=== PATIENT | female | born 1950 | race Caucasian/White ===

== ENCOUNTER 2016-09-14 17:20 | Emergency (ER) | payer OTHER ==
[~2016-09-14] VITALS: Ht 167.6 cm; Wt 76.5 kg
[~2016-09-14 17:20] MED LIST: ALBU1AER9 INH; BENZ100C84 PO; BUSP30TA2 PO; CHOL100010 PO; CITA40TA4 PO; FLUT220A INH; GLIM1TAB2 PO; LEVO75TA5 PO; NAPR-1169 PO; PRAV20TA PO; PRLSR20 PO; VSC/5 PO
[2016-09-14 17:25] VITALS: TEMP 36.6; Ht 167.6 cm; Wt 76.5 kg
[2016-09-14] MEDS ORDERED: FLUT0.15 NAE (17:49)
--- NOTE | 2016-09-14 18:40 | DIAGNOSTIC IMAGING REPORT ---
RIGHT LOWER EXTREMITY VENOUS DOPPLER CLINICAL HISTORY: Right leg swelling. COMPARISON STUDY: No previous studies for comparison. TECHNIQUE: Sonography of the deep venous system of the right lower extremity was performed. Compression and augmentation were evaluated. FINDINGS: The right common femoral, superficial femoral and popliteal veins were compressible. Augmentation was normal. Flow was shown within the deep calf vessels. IMPRESSION: No evidence of deep venous thrombus within the right lower extremity. Electronically signed by: Matthew Lancaster M.D. 09/14/2016 6:38 PM Dictated Date/Time: 09/14/2016 6:38 PM
[2016-09-14 19:21] VITALS: BP 149/80; PULSE 84; O2SAT 95
--- NOTE | 2016-09-14 19:28 | EMERGENCY ROOM VISIT NOTE ---
History First contact with patient: 17:32 Chief Complaint: LEG PAIN,LEG INJURY Stated Complaint: RIGHT LEF SWOLLEN/CALF History of Present Illness The patient is a 66 year old female who presents to the Emergency Room with complaints of persistent swelling of the right leg after tripping and falling on a concrete step the day after Tamara. The patient reports that she now has a little bit of swelling of the front of the knee, and swelling of the calf with mild leg cramps. She denies any knee pain with ambulation. She denies any prior history of blood clots, but thought she should be checked to make sure that she does not have an acute DVT. Tetanus immunization is up-to-date. Review of Systems 10 system review was performed and was negative except for pertinent positives and negatives as indicated in history of present illness Past Medical/Surgical History Medical Problems: (1) Chronic Kidney Disease, Stage 3 (Moderate) (2) Chronic Sphenoidal Sinusitis (3) Hyperlipidemia, Unspecified (4) Hypothyroidism, Unspecified (5) Personal History Of Malignant Neoplasm Of Breast (6) Type 2 Diabetes Mellitus Without Complications Surgical Problems: (1) History of hysterectomy Family History FH: diabetes mellitus FH: heart disease FH: hypertension Social History Smoking Status: Never Smoker Alcohol Use: occasionally Marital Status: Occupation Status: retired Current/Historical Medications Scheduled Buspirone Hcl (Buspirone Hcl), 15 TAB PO BID Cholecalciferol (Vitamin D), 1,000 INTER.UNIT PO QAM Citalopram (Citalopram Hydrobromide), 1 TAB PO QAM Fluticasone Propionate (Nasal) (Flonase Allergy Relief), 2 SPRAY FREDERICK DAILY Glimepiride (Glimepiride), 2 MG PO DAILY Levothyroxine Sodium (Levothyroxine Sodium), 1 TAB PO QAM Omeprazole (Prilosec), 20 MG PO QAM Pravastatin (Pravachol ), 40 MG PO HS Solifenacin (Vesicare), 5 MG PO HS Scheduled PRN Albuterol (Proair Hfa), 2 PUFFS INH Q4 PRN for SOB/Wheezing Benzonatate (Tessalon Perles), 100 MG PO UD PRN for Cough Naproxen (Naprosyn), 500 MG PO BID PRN for Pain Allergies Coded Allergies: No Known Allergies (Unverified , 11/18/15) Physical Exam Vital Signs Date Time Temp Pulse Resp B/P Pulse Ox O2 Delivery O2 Flow Rate FiO2 09/14/16 19:21 84 16 149/80 95 09/14/16 17:25 36.6 102 20 148/75 92 Room Air Pain Rating (0-10): 4.0 Physical Exam CONSTITUTIONAL: Healthy and well nourished. Alert and oriented X 3 with positive affect. Patient does not appear in any acute distress. HEENT: Normocephalic, atraumatic. Pupils equal, round and reactive. NECK: Full active range of motion without discomfort. MUSCULOSKELETAL: Examination of the right lower extremity does not show any obvious edema when compared to the contralateral leg. The patient has a small abrasion over the patellar tendon region. She also has bogginess over the tibial tubercle. She has full range of motion of the knee without discomfort. Ligaments exam is normal. No joint effusion. No antalgic gait. She has no significant tenderness to palpation of the gastroc muscle or Achilles tendon. Distal pulses are intact. INTEGUMENTARY: No rash or other significant dermatologic conditions noted. NEUROLOGIC: Right foot and toes are sensory intact. Medical Decision & Procedures ER Provider Diagnostic Interpretation: Venous ultrasound of the right lower extremity is negative for deep vein thrombosis. Radiologist report is as follows: RIGHT LOWER EXTREMITY VENOUS DOPPLER CLINICAL HISTORY: Right leg swelling. COMPARISON STUDY: No previous studies for comparison. TECHNIQUE: Sonography of the deep venous system of the right lower extremity was performed. Compression and augmentation were evaluated. FINDINGS: The right common femoral, superficial femoral and popliteal veins were compressible. Augmentation was normal. Flow was shown within the deep calf vessels. IMPRESSION: No evidence of deep venous thrombus within the right lower extremity. ED Course Patient history and physical exam were performed. Nurse's notes were reviewed. The patient refused an x-ray, stating that she can walk without discomfort, therefore does not feel that she has a fracture. She did request an ultrasound of the leg. Venous Doppler did not show any evidence for deep vein thrombosis. The patient was encouraged to apply an Tono wrap to the leg, and intermittently apply ice for swelling. She was encouraged to follow-up with her family doctor as needed for any persistent symptoms or swelling. The patient was happy with plan of care, and rated her discomfort a 2 out of 10 at the conclusion of my exam. Impression Primary Impression: Contusion of right leg Departure Information Dispostion Home / Self-Care Forms HOME CARE DOCUMENTATION FORM, IMPORTANT VISIT INFORMATION Patient Instructions A Signature Page, My [facility] Additional Instructions Intermittently apply ice to leg for swelling. Suggest wrapping an Tono wrap around the leg for additional support and to help control any residual bleeding of the deep tissue. Tylenol as needed for pain. Follow-up with your family doctor as needed if symptoms are not improving within the next 3-5 days.
[2017-01-08] MEDS ORDERED: PRVC/40 PO (13:08)
[2017-01-08] MEDS ORDERED: GLIM2TAB2 PO (13:08)
[2017-01-08] MEDS ORDERED: ASPCH81X PO (13:08)
[2017-02-20] MEDS ORDERED: PRED1SUS3 OPL (11:00)
== END 2016-09-14 19:22 | disposition home or self-care (01) ==
LOC: C.EDB 17:21 → C.EDD 19:22
DX: S80.11XA Contusion of right lower leg, initial encounter (principal); M79.89 Other specified soft tissue disorders; N18.3 Chronic kidney disease, stage 3 (moderate); E03.9 Hypothyroidism, unspecified; E78.5 Hyperlipidemia, unspecified; E11.9 Type 2 diabetes mellitus without complications; Z79.899 Other long term (current) drug therapy; Z85.3 Personal history of malignant neoplasm of breast; W19.XXXA Unspecified fall, initial encounter

== ENCOUNTER → 2017-01-29 | Day surgery (SDC) | payer OTHER ==
[2017-01-08 13:09] VITALS: Ht 167.6 cm; Wt 71.8 kg
[~2017-01-29] VITALS: Ht 167.6 cm; Wt 71.8 kg
[~2017-01-29] MED LIST changes: +500ML BSS 0.3ML EPI 1:1000PF IRRIG ONE; +ACETAMINOPHEN 325 MG TAB PO PRN; +AMVISC PLUS 0.8ML SYRINGE INT OCU ONE; +ASPCH81X PO; +ATROPINE SULFATE 0.1 MG/ML 5ML SYR IV PRN; -BENZ100C84 PO; +BSS FLUSH ONE; +EpHEDrine SULFATE INJ 50 MG/ML AMP IV PRN; +EpINEphrine INJ 1MG/ML AMP 1 MG/ML AMP ONE; +FLUT0.15 NAE; -FLUT220A INH; -GLIM1TAB2 PO; +GLIM2TAB2 PO; +LACTATED RINGER'S 1000ML 500 ML IV SCH; +LIDOCAINE 3.5% OPH GEL PER APPLICATION CHARGE ONE; +LIDOCAINE HCL 1% MPF 2 ML VIAL ONE; +MIDAZOLAM HCL 1 MG/ML 2ML VIAL ONE; -NAPR-1169 PO; +OCUCOAT 1 ML SOLN IO ONE; +PHENYLEPHRINE HCL 10% OP SOLN PER DROP CHARGE OPL SCH; +POVIDONE-IODINE OP SOLN 30 ML BTL ONE; -PRAV20TA PO; +PRED1SUS3 OPL; +PROPARACAINE 0.5% OP SOLN PER DROP CHARGE OPL SCH; +PRVC/40 PO; +TOBRAMYCIN/DEXAMETHASONE OPH OINT PER APPLN CHARGE ONE
[2017-01-29] MEDS: TROPICAMIDE 1% OP SOLN PER DROP CHARGE OPL SCH ×2 (08:52→09:00)
[2017-01-29] MEDS: PHENYLEPHRINE HCL 2.5% OP SOLN PER DROP CHARGE OPL SCH ×2 (08:52→08:58)
[2017-01-29] MEDS: CYCLOPENTOLATE HCL 1% OP SOLN PER DROP CHARGE OPL SCH ×2 (08:53→09:01)
[2017-01-29] MEDS: KETOROLAC 0.5% OP SOLN PER DROP CHARGE OPL SCH ×2 (08:55→09:02)
[2017-01-29] MEDS: GATIFLOXACIN OP SOLN PER DROP CHARGE OPL SCH ×2 (08:56→09:03)
--- NOTE | 2017-01-29 09:01 | History & Physical Bridge - SC ---
H&P Re-Evaluation Bridge Note: I have examined the patient, reviewed the History & Physical and in the interval since the performance of the History & Physical I have noted the following changes of clinical significance: No changes noted
--- NOTE | 2017-01-29 09:49 | [facility] Operative Report ---
Operative Report Date of Service January 29, 2017. Operative Report 1. PREOPERATIVE DIAGNOSIS: Cataract of the left eye. 2. POSTOPERATIVE DIAGNOSIS: Same. 3. PROCEDURE: Phacoemulsification with intraocular lens implantation of the left eye. SURGEON: Dr. Darci Holbrook. ANESTHESIA: Topical Lidocaine gel, 1% Non- Preserved intracameral Lidocaine, and monitored intravenous sedation. INDICATIONS FOR THE PROCEDURE: The patient is a 66 - year-old female with a history of cataract of the left eye causing significant visual impairment. The details of the proposed procedure were explained to the patient who asked appropriate questions and following discussion of all risks, benefits and alternatives agreed to have the procedure done. 4. OPERATION AND FINDINGS: DESCRIPTION OF PROCEDURE: After informed consent was obtained, the patient was brought to the Operating Room at the [facility]. The patient was placed in a supine position and then the left eye was prepped and draped in the usual sterile fashion for intraocular surgery. A drop of topical Lidocaine gel was placed in the operative eye. A wire lid speculum was then placed in the fornices. A corneal paracentesis was then created temporally. The Non-Preserved Lidocaine was then instilled into the anterior chamber. The anterior chamber was then pressurized with viscoelastic. A 2.0 mm clear corneal incision was then created temporally. A cystotome was inserted into the anterior chamber and used to create a tear in the anterior lens capsule. This capsular tear was then used to create a small flap and the flap was dragged in a counterclockwise direction in order to create a continuous curvilinear capsulorrhexis. Hydrodissection was accomplished with balanced salt solution. Phacoemulsification of the lens nucleus was then performed in a standard [id number] technique. The phaco time was 21 seconds with an average power of 13 %. The remaining cortical material was removed using irrigation aspiration. The capsular bag was then filled with viscoelastic. A Bausch & Lomb MI60L +22.5 diopters lens was then loaded into the injector and injected into the capsular bag. The remaining viscoelastic was removed with the irrigation aspiration handpiece. The wound was hydrated and then checked and found to be watertight. The intraocular pressure was checked and found to be adequate. The wire lid speculum was removed and the patient's face was cleaned and dried. TobraDex ointment was placed in the inferior fornix. The patient was discharged to the Recovery Room having tolerated the procedure well. There were no complications. The patient will be seen tomorrow in the office for follow-up. I attest to the content of the Intraoperative Record and any orders documented therein. Any exceptions are noted below.
--- NOTE | 2017-01-29 09:49 | Discharge Instructions-SurgCtr ---
Discharge Instructions Date of Service January 29, 2017. Visit Reason for Visit: Cataract Left Eye Discharge Discharge Diagnosis / Problem: cataract Discharge Goals Goal(s): Improve function Activity Recommendations Activity Limitations: per Instructions/Follow-up section Anesthesia . Post Anesthesia Instructions: If you have had General Anesthesia or IV Sedation: * Do not drive today. * Resume driving when surgeon permits. * Do not make important decisions or sign legal documents today. * Call surgeon for: 1. Temperature elevations greater than 101 degrees F. 2. Uncontrollable pain. 3. Excessive bleeding. 4. Persistent nausea and vomiting. 5. Medication intolerance (nausea, vomiting or rash). * For nausea and vomiting use only clear liquids such as: tea, soda, bouillon until nausea subsides, then gradually increase diet as tolerated. * If you have any concerns or questions, call your surgeon's office. If physician is unavailable and it is an emergency, call 911 or go to the nearest emergency room. . Instructions / Follow-Up Instructions / Follow-Up ACTIVITY RECOMMENDATIONS: * No strenuous lifting, jogging or running for 4 days * No swimming or yard work for 1 week. * Limited bending is permitted, such as putting on shoes. RETURN TO SCHOOL/WORK: No work until seen by physician in office. MEDICATIONS: Resume previous medications unless instructed otherwise by your surgeon. This includes eye drops for glaucoma. Zymaxid/Gatifloxacin (sprague cap) - one drop every 2 hours until bedtime Nevanac/Ilevro/Prolensa/Ketorolac (salmeron cap) - one drop every 4 hours until bedtime Prednisolone (white/pink cap, SHAKE WELL) - one drop every 2 hours until bedtime Starting tomorrow - all 3 drops every 4 hours until seen in the office Optive drops - as needed for discomfort SPECIAL CARE INSTRUCTIONS: * Wear eyeshield when sleeping, for four nights. * You may wear your own glasses or sunglasses while awake. * You may read or watch TV * You may shower and wash your face, but be gentle around the eye and pat dry. * Blurry vision and mild irritation are normal. * Call office if pain is more severe or vision becomes dark at . FOLLOW UP VISIT: Follow-up with Dr Holbrook tomorrow. Diet Recommendations Home Diet: resume previous diet Procedures Procedures Performed: Left Cataract Phacoemulsification With Intraocular Lens Implant Pending Studies Studies pending at discharge: no Medical Emergencies . Who to Call and When: Medical Emergencies: If at any time you feel your situation is an emergency, please call 911 immediately. . Non-Emergent Contact Non-Emergency issues call your: Utilization Management Um Nurse . . "Provider Documentation" section prepared by Darci Holbrook. .
[2017-01-29 09:53] VITALS: TEMP 36.5
[2017-01-29 10:14] VITALS: BP 148/71; PULSE 65; O2SAT 96
--- NOTE | 2017-01-29 10:17 | Anesthesia Progress Nt - [facility] ---
Anesthesia Post Op Note Date & Time January 29, 2017 at 10:18 Vital Signs Pain Intensity: 0 Vital Signs Past 12 Hours Date Time Temp Pulse Resp B/P Pulse Ox O2 Delivery O2 Flow Rate FiO2 01/29/17 10:14 65 16 148/71 96 Room Air 01/29/17 09:53 36.5 62 14 130/78 96 Room Air 01/29/17 08:48 36.9 62 16 138/77 95 Room Air Notes Mental Status: alert / awake / arousable, participated in evaluation Pt Amnestic to Procedure: Yes Nausea / Vomiting: adequately controlled Pain: adequately controlled Airway Patency, RR, SpO2: stable & adequate BP & HR: stable & adequate Hydration State: stable & adequate Anesthetic Complications: no major complications apparent
== END | disposition home or self-care (01) ==
LOC: X.SURG 08:27
PROVIDERS: ATTEND Ophthalmology
DX: H25.9 Unspecified age-related cataract (principal); E11.9 Type 2 diabetes mellitus without complications; F32.9 Major depressive disorder, single episode, unspecified; E03.9 Hypothyroidism, unspecified; J45.909 Unspecified asthma, uncomplicated; Z85.3 Personal history of malignant neoplasm of breast; E78.5 Hyperlipidemia, unspecified; N18.3 Chronic kidney disease, stage 3 (moderate); N39.41 Urge incontinence; Z79.84 Long term (current) use of oral hypoglycemic drugs; Z83.3 Family history of diabetes mellitus; Z82.49 Family history of ischemic heart disease and other diseases of the circulatory system; Z90.710 Acquired absence of both cervix and uterus

== ENCOUNTER → 2017-02-26 | Day surgery (SDC) | payer OTHER ==
[2017-02-20 11:00] VITALS: Ht 167.6 cm; Wt 71.8 kg
[~2017-02-26] VITALS: Ht 167.6 cm; Wt 71.8 kg
[~2017-02-26] MED LIST changes: -EpHEDrine SULFATE INJ 50 MG/ML AMP IV PRN; -PHENYLEPHRINE HCL 10% OP SOLN PER DROP CHARGE OPL SCH; +PHENYLEPHRINE HCL 10% OP SOLN PER DROP CHARGE OPR SCH; -PROPARACAINE 0.5% OP SOLN PER DROP CHARGE OPL SCH; +PROPARACAINE 0.5% OP SOLN PER DROP CHARGE OPR SCH
[2017-02-26] MEDS: PHENYLEPHRINE HCL 2.5% OP SOLN PER DROP CHARGE OPR SCH ×2 (08:47→08:54)
[2017-02-26] MEDS: TROPICAMIDE 1% OP SOLN PER DROP CHARGE OPR SCH ×2 (08:48→08:55)
[2017-02-26] MEDS: CYCLOPENTOLATE HCL 1% OP SOLN PER DROP CHARGE OPR SCH ×2 (08:50→08:56)
[2017-02-26] MEDS: KETOROLAC 0.5% OP SOLN PER DROP CHARGE OPR SCH ×2 (08:51→08:56)
[2017-02-26] MEDS: GATIFLOXACIN OP SOLN PER DROP CHARGE OPR SCH ×2 (08:52→08:57)
--- NOTE | 2017-02-26 10:15 | Discharge Instructions-SurgCtr ---
Discharge Instructions Date of Service Feb 26, 2017. Visit Reason for Visit: Right Cataract Discharge Discharge Diagnosis / Problem: cataract Discharge Goals Goal(s): Improve function Activity Recommendations Activity Limitations: per Instructions/Follow-up section Anesthesia . Post Anesthesia Instructions: If you have had General Anesthesia or IV Sedation: * Do not drive today. * Resume driving when surgeon permits. * Do not make important decisions or sign legal documents today. * Call surgeon for: 1. Temperature elevations greater than 101 degrees F. 2. Uncontrollable pain. 3. Excessive bleeding. 4. Persistent nausea and vomiting. 5. Medication intolerance (nausea, vomiting or rash). * For nausea and vomiting use only clear liquids such as: tea, soda, bouillon until nausea subsides, then gradually increase diet as tolerated. * If you have any concerns or questions, call your surgeon's office. If physician is unavailable and it is an emergency, call 911 or go to the nearest emergency room. . Instructions / Follow-Up Instructions / Follow-Up ACTIVITY RECOMMENDATIONS: * No strenuous lifting, jogging or running for 4 days * No swimming or yard work for 1 week. * Limited bending is permitted, such as putting on shoes. RETURN TO SCHOOL/WORK: No work until seen by physician in office. MEDICATIONS: Resume previous medications unless instructed otherwise by your surgeon. This includes eye drops for glaucoma. Zymaxid/Gatifloxacin (sprague cap) - one drop every 2 hours until bedtime Nevanac/Ilevro/Prolensa/Ketorolac (salmeron cap) - one drop every 4 hours until bedtime Prednisolone (white/pink cap, SHAKE WELL) - one drop every 2 hours until bedtime Starting tomorrow - all 3 drops every 4 hours until seen in the office Optive drops - as needed for discomfort SPECIAL CARE INSTRUCTIONS: * Wear eyeshield when sleeping, for four nights. * You may wear your own glasses or sunglasses while awake. * You may read or watch TV * You may shower and wash your face, but be gentle around the eye and pat dry. * Blurry vision and mild irritation are normal. * Call office if pain is more severe or vision becomes dark at . FOLLOW UP VISIT: Follow-up with Dr Holbrook tomorrow. Diet Recommendations Home Diet: resume previous diet Procedures Procedures Performed: Right Cataract Phacoemulsification With Intraocular Lens Implant Pending Studies Studies pending at discharge: no Medical Emergencies . Who to Call and When: Medical Emergencies: If at any time you feel your situation is an emergency, please call 911 immediately. . Non-Emergent Contact Non-Emergency issues call your: Backhaul Driver . . "Provider Documentation" section prepared by Darci Holbrook. .
[2017-02-26 10:16] VITALS: BP 143/69; PULSE 57; TEMP 36.6; O2SAT 98
--- NOTE | 2017-02-26 10:16 | [facility] Operative Report ---
Operative Report Date of Service Feb 26, 2017. Operative Report 1. PREOPERATIVE DIAGNOSIS: Cataract of the right eye. 2. POSTOPERATIVE DIAGNOSIS: Same. 3. PROCEDURE: Phacoemulsification with intraocular lens implantation of the right eye. SURGEON: Dr. Darci Holbrook. ANESTHESIA: Topical Lidocaine gel, 1% Non- Preserved intracameral Lidocaine, and monitored intravenous sedation. INDICATIONS FOR THE PROCEDURE: The patient is a 66 - year-old female with a history of cataract of the right eye causing significant visual impairment. The details of the proposed procedure were explained to the patient who asked appropriate questions and following discussion of all risks, benefits and alternatives agreed to have the procedure done. 4. OPERATION AND FINDINGS: DESCRIPTION OF PROCEDURE: After informed consent was obtained, the patient was brought to the Operating Room at the [facility]. The patient was placed in a supine position and then the right eye was prepped and draped in the usual sterile fashion for intraocular surgery. A drop of topical Lidocaine gel was placed in the operative eye. A wire lid speculum was then placed in the fornices. A corneal paracentesis was then created temporally. The Non-Preserved Lidocaine was then instilled into the anterior chamber. The anterior chamber was then pressurized with viscoelastic. A 2.0 mm clear corneal incision was then created temporally. A cystotome was inserted into the anterior chamber and used to create a tear in the anterior lens capsule. This capsular tear was then used to create a small flap and the flap was dragged in a counterclockwise direction in order to create a continuous curvilinear capsulorrhexis. Hydrodissection was accomplished with balanced salt solution. Phacoemulsification of the lens nucleus was then performed in a standard [id number]-[id number]-byhyyes technique. The phaco time was 20 seconds with an average power of 9 %. The remaining cortical material was removed using irrigation aspiration. The capsular bag was then filled with viscoelastic. A Bausch & Lomb MI60L +22.5 diopters lens was then loaded into the injector and injected into the capsular bag. The remaining viscoelastic was removed with the irrigation aspiration handpiece. The wound was hydrated and then checked and found to be watertight. The intraocular pressure was checked and found to be adequate. The wire lid speculum was removed and the patient's face was cleaned and dried. TobraDex ointment was placed in the inferior fornix. The patient was discharged to the Recovery Room having tolerated the procedure well. There were no complications. The patient will be seen tomorrow in the office for follow-up. I attest to the content of the Intraoperative Record and any orders documented therein. Any exceptions are noted below.
--- NOTE | 2017-02-26 10:34 | Anesthesia Progress Nt - [facility] ---
Anesthesia Post Op Note Date & Time Feb 26, 2017 at 10:34 Vital Signs Pain Intensity: 0 Vital Signs Past 12 Hours Date Time Temp Pulse Resp B/P (MAP) Pulse Ox O2 Delivery O2 Flow Rate FiO2 02/26/17 10:16 36.6 57 16 143/69 (93) 98 Room Air 02/26/17 08:42 36.7 60 20 151/69 (96) 94 Room Air Notes Mental Status: alert / awake / arousable, participated in evaluation Pt Amnestic to Procedure: Yes Nausea / Vomiting: adequately controlled Pain: adequately controlled Airway Patency, RR, SpO2: stable & adequate BP & HR: stable & adequate Hydration State: stable & adequate Anesthetic Complications: no major complications apparent
== END | disposition home or self-care (01) ==
LOC: X.SURG 08:15
PROVIDERS: ATTEND Ophthalmology
DX: H26.9 Unspecified cataract (principal); E11.9 Type 2 diabetes mellitus without complications; J45.909 Unspecified asthma, uncomplicated; N28.9 Disorder of kidney and ureter, unspecified; E03.9 Hypothyroidism, unspecified; F32.9 Major depressive disorder, single episode, unspecified; F41.9 Anxiety disorder, unspecified; Z79.899 Other long term (current) drug therapy